=== PATIENT | female | born 1985 | race Caucasian/White ===

== ENCOUNTER 2024-10-17 07:39 | Outpatient (CLI) | payer SELFPAY ==
--- NOTE | 2024-10-17 07:49 | MM_ITS ---
WS: [id number] BILATERAL 3D TOMOSYNTHESIS DIGITAL DIAGNOSTIC MAMMOGRAPHY WITH CAD CLINICAL INFORMATION: BREAST LUMP HISTORY: Bilateral breast lumps COMPARISON: None. TECHNIQUE: Bilateral CC, MLO, and ML views. FINDINGS: Scattered fibroglandular densities bilaterally. Bilateral palpable markers. No underlying mammographic abnormalities in these areas. Ultrasound described below. ULTRASOUND BREAST BILATERAL TECHNIQUE: Ultrasound bilateral breast focused area of concern. CLINICAL INFORMATION: BREAST LUMP FINDINGS: RIGHT BREAST: No suspicious abnormalities RIGHT breast area of concern LEFT BREAST: No suspicious abnormalities LEFT breast area of concern MM/MM diag BI tomosynthesis [id number] IMPRESSION: DENSITY: There are scattered areas of fibroglandular density. BI-RADS: 2 - Benign. FOLLOW UP: Age 42 Recommend annual screening mammography age 40
== END 2024-10-17 07:40 | disposition home or self-care (01) ==
LOC: RAD 07:42
PROVIDERS: Visit Provider Advanced Practice Midwife
DX: R92.8 Other abnormal and inconclusive findings on diagnostic imaging of breast (principal); N63.0 Unspecified lump in unspecified breast
CPT/HCPCS: 76642; 77062; G0279